=== PATIENT | female | born 1970 ===

== ENCOUNTER 2022-08-13 05:18 | Day surgery (SDC) | payer OTHER ==
[~2022-08-13] VITALS: Ht 149.9 cm; Wt 109.8 kg
[~2022-08-13 05:18] MED LIST: D3 + K2 DOTS 11 EACH PO; IRON236 MG PO; PRENATAL1 TAB PO; PROMETRIUM
== END 2022-08-13 18:15 | disposition home or self-care (01) ==
LOC: CIR.AMB 05:18
PROVIDERS: ATTEND Obstetrics & Gynecology
DX: N93.8 Other specified abnormal uterine and vaginal bleeding (principal); Z20.822 Contact with and (suspected) exposure to COVID-19